=== PATIENT | female | born 1990 | race African-American/Black ===

== ENCOUNTER 2017-07-08 16:33 | Emergency (ER) | payer MEDICAID ==
[~2017-07-08] VITALS: Ht 160 cm; Wt 65.3 kg
[2017-07-08] MEDS ORDERED: Haloperidol 5mg/ml Inj IM ONE (17:15)
[2017-07-08 17:52] LABS: APPEARANCE,URINE CLEAR; BILIRUBIN, URINE NEGATIVE (NEGATIVE); GLUCOSE, URINE (UA) NEGATIVE (NEGATIVE); KETONES,URINE 1+ (NEGATIVE); LEUKOCYTE ESTERASE ,URINE 1+ (NEGATIVE); NITRITE,URINE NEGATIVE (NEGATIVE); PH,URINE 6 (4.5-8.0); PROTEIN,URINE NEGATIVE (NEGATIVE); UROBILINOGEN,URINE NORMAL MG/DL (0.0-1.0)
[2017-07-08 17:56] LABS: COLOR,URINE YELLOW
[2017-07-08 17:57] LABS: EOSINOPHILS % (AUTO) 0.2 % (0.0-3.0); HEMATOCRIT 48.5 % (37.0-47.0); HEMOGLOBIN 14.3 G/DL (12.0-16.0); LYMPHOCYTES % (AUTO) 14.3 % (20.0-45.0); MEAN CORPUSCULAR VOLUME 97 FL (80-99); MONOCYTES % (AUTO) 7.2 % (1.0-10.0); NEUTROPHILS % (AUTO) 77.4 % (45.0-75.0); PLATELET COUNT 228 K/UL (150-450); RED BLOOD COUNT 5.01 M/UL (4.20-5.40); RED CELL DISTRIBUTION WIDTH 12.4 % (11.6-14.8); WHITE BLOOD COUNT 10.7 K/UL (4.8-10.8)
[2017-07-08] MEDS ORDERED: ZOFRAN4 MG ORAL (18:18)
[2017-07-08 18:24] LABS: ANION GAP 11 mmol/L (5-15); BLOOD UREA NITROGEN 17 mg/dL (7-18); CALCIUM 8.7 MG/DL (8.5-10.1); CARBON DIOXIDE 25 MMOL/L (21-32); CHLORIDE 104 MMOL/L (98-107); CREATININE 0.9 MG/DL (0.55-1.30); POTASSIUM 4.1 MMOL/L (3.5-5.1); SODIUM 140 MMOL/L (136-145)
[2017-07-08 18:28] LABS: ALANINE AMINOTRANSFERASE 18 U/L (12-78); ALBUMIN 4.4 G/DL (3.4-5.0); ALBUMIN/GLOBULIN RATIO 1.1 (1.0-2.7); ALKALINE PHOSPHATASE 56 U/L (46-116); ASPARTATE AMINO TRANSFERASE 19 U/L (15-37); BILIRUBIN,TOTAL 0.4 MG/DL (0.2-1.0)
[2017-07-08 18:40] VITALS: BP 188/171
[2017-07-08 19:23] VITALS: BP 129/87
--- NOTE | 2017-08-03 13:58 | Emergency Room Report ---
History of Present Illness General Chief Complaint: Abdominal Pain Source: Patient Present Illness HPI Patient is a 27-year-old female who presented after increased abdominal pain.The patient stated that she had a history of similar type symptoms when she was having her menses. Patient was noted to have prior history of dysmenorrhea. The patient was noted to have otherwise unremarkable past medical history. She denies being . She denied prior history of stomach ulcers or alcohol use . Allergies: Coded Allergies: No Known Allergies (Unverified , 07/08/17) Patient History Last Menstrual Period: Current Reviewed Nursing Documentation: PMH: Agreed, PSxH: Agreed Nursing Documentation-PM Past Medical History: No History, Except For Hx Asthma: Yes Review of Systems All Other Systems: negative except mentioned in HPI Physical Exam Vital Signs Date Time Temp Pulse Resp B/P (MAP) Pulse Ox O2 Delivery O2 Flow Rate FiO2 07/08/17 16:40 99.1 73 21 188/171 98 Room Air General Appearance: well appearing, no apparent distress, alert, GCS 15, non- toxic Head: normocephalic, atraumatic ENT: hearing grossly normal, normal voice Neck: full range of motion, supple Respiratory: no respiratory distress, speaking full sentences Cardiovascular #1: normal inspection Gastrointestinal: normal inspection Musculoskeletal: no calf tenderness Neurologic: normal gait Psychiatric: mood/affect normal Skin: no rash Medical Decision Making Diagnostic Impression: Primary Impression: Nonspecific abdominal pain ER Course Patient presented for abdominal Pain. Differential diagnoses included ischemic bowel, appendicitis, perforated viscus, abdominal aortic aneurysm, inferior myocardial infarction, viral gastroenteritis. Because of complexity of patient' s case laboratory testing and imaging studies were ordered. Laboratory testing was notable for normal white blood count adequate hemoglobin. The patient was noted to have improvement after nausea medications. She is advised followup with her WALL TAPER HELPER for further examination and recheck . The patient is advised to follow up in 1-2 days. Patient is advised to return if any worsening condition or if any changes in status that are concerning. This report is dictated with [employer] platform inspector software which may occasionally lead to discrepancies related to use of this software. Labs Test 07/08/17 17:11 07/08/17 17:43 07/08/17 17:56 Urine Color Yellow Urine Appearance Clear Urine pH 6 (4.5-8.0) Urine Specific [place] 1.015 (1.005-1.035) Urine Protein Negative (NEGATIVE) Urine Glucose (UA) Negative (NEGATIVE) Urine Ketones 1+ (NEGATIVE) Urine Occult Blood 4+ (NEGATIVE) Urine Nitrite Negative (NEGATIVE) Urine Bilirubin Negative (NEGATIVE) Urine Urobilinogen Normal MG/DL (0.0-1.0) Urine Leukocyte Esterase 1+ (NEGATIVE) Urine RBC 15-20 /HPF (0 - 2) Urine WBC 2-4 /HPF (0 - 2) Urine Squamous Epithelial Cells Occasional /LPF Urine Bacteria Occasional /HPF (NONE) Urine HCG, Qualitative Negative Sodium Level 140 MMOL/L (136-145) Potassium Level 4.1 MMOL/L (3.5-5.1) Chloride Level 104 MMOL/L (98-107) Carbon Dioxide Level 25 MMOL/L (21-32) Anion Gap 11 mmol/L (5-15) Blood Urea Nitrogen 17 mg/dL (7-18) Creatinine 0.9 MG/DL (0.55-1.30) Estimat Glomerular Filtration Rate > 60 mL/min (>60) Glucose Level 94 MG/DL (74-106) Calcium Level 8.7 MG/DL (8.5-10.1) Total Bilirubin 0.4 MG/DL (0.2-1.0) Aspartate Amino Transf (AST/SGOT) 19 U/L (15-37) Alanine Aminotransferase (ALT/SGPT) 18 U/L (12-78) Alkaline Phosphatase 56 U/L (46-116) Troponin I 0.000 ng/mL (0.000-0.056) Total Protein 8.3 G/DL (6.4-8.2) Albumin 4.4 G/DL (3.4-5.0) Globulin 3.9 g/dL Albumin/Globulin Ratio 1.1 (1.0-2.7) Lipase 114 U/L (73-393) White Blood Count 10.7 K/UL (4.8-10.8) Red Blood Count 5.01 M/UL (4.20-5.40) Hemoglobin 14.3 G/DL (12.0-16.0) Hematocrit 48.5 % (37.0-47.0) Mean Corpuscular Volume 97 FL (80-99) Mean Corpuscular Hemoglobin 28.6 PG (27.0-31.0) Mean Corpuscular Hemoglobin Concent 29.5 G/DL (32.0-36.0) Red Cell Distribution Width 12.4 % (11.6-14.8) Platelet Count 228 K/UL (150-450) Mean Platelet Volume 7.4 FL (6.5-10.1) Neutrophils (%) (Auto) 77.4 % (45.0-75.0) Lymphocytes (%) (Auto) 14.3 % (20.0-45.0) Monocytes (%) (Auto) 7.2 % (1.0-10.0) Eosinophils (%) (Auto) 0.2 % (0.0-3.0) Basophils (%) (Auto) 1.0 % (0.0-2.0) Last Vital Signs Date Time Temp Pulse Resp B/P (MAP) Pulse Ox O2 Delivery O2 Flow Rate FiO2 07/08/17 19:23 99.1 68 20 129/87 98 Room Air Status: improved Disposition: HOME, SELF-CARE Condition: Stable Scripts Ondansetron (Zofran) 4 Mg Tablet 4 MG ORAL Q6H Y for Nausea & Vomiting, #30 TAB 0 Refills Prov: Abraham Mancilla 07/08/17 Patient Instructions: Abdominal Pain, Adult Abraham Mancilla Aug 03, 2017 13:58
== END 2017-07-08 19:27 | disposition home or self-care (01) ==
LOC: EMR 17:45
DX: R11.10 Vomiting, unspecified (principal); R10.9 Unspecified abdominal pain; R06.02 Shortness of breath
CPT/HCPCS: 36415; 80053; 81003; 81025; 83690; 84484; 85025; 96360; 96372; 99284; J1630; 96361

== ENCOUNTER 2018-01-09 12:24 | Emergency (ER) | payer MEDICAID ==
[~2018-01-09] VITALS: Ht 162.6 cm; Wt 65.8 kg
[~2018-01-09 12:24] MED LIST: ZOFRAN4 MG ORAL
[2018-01-09 12:35] VITALS: BP 122/75
[2018-01-09] MEDS ORDERED: NKM (12:40)
[2018-01-09] MEDS ORDERED: Ketorolac 60mg Inj IM ONE (13:00)
--- NOTE | 2018-01-09 13:43 | Emergency Room Report ---
History of Present Illness General Chief Complaint: Upper Extremity Injury Source: Patient Present Illness HPI 27-year-old female presents emergency department complaining of 7 out of 10 in severity localized pain, swelling and difficulty bending the left third finger times one month status post injury where she describes jamming her finger. Patient also reports 7 out of 10 in severity uterine cramping/menstrual cramps. Patient reports that she has intermittent painful periods and sometimes requires medications. She reports 1 episode of vomiting this am. pt. reports hx of painful periods in the past sometimes associated with vomiting. Patient denies . Denies hematuria, dysuria, urinary frequency. Patient states she is not sexually active. Patient denies history of STDs. Patient denies vaginal discharge or swollen tender lymph nodes. Denies numbness tingling or loss of sensation or gross motor movements of the extremities, incontinence of bowel or bladder. Denies CP, Palpitations, LOC, AMS, dizziness, Changes in Vision, weakness or a sudden severe headache. Allergies: Coded Allergies: No Known Allergies (Unverified , 07/08/17) Patient History Past Medical History: see triage record Past Surgical History: none Pertinent Family History: none Last Menstrual Period: 01/09/18 Now: No Immunizations: UTD Reviewed Nursing Documentation: PMH: Agreed; PSxH: Agreed Nursing Documentation-PMH Hx Asthma: Yes Review of Systems All Other Systems: negative except mentioned in HPI Physical Exam Vital Signs Date Time Temp Pulse Resp B/P (MAP) Pulse Ox O2 Delivery O2 Flow Rate FiO2 01/09/18 12:34 98.5 61 16 122/75 98 Room Air 98.4 Sp02 EP Interpretation: reviewed, normal General Appearance: alert, GCS 15, non-toxic, mild distress Head: normocephalic, atraumatic ENT: hearing grossly normal, normal voice Neck: full range of motion Respiratory: lungs clear, normal breath sounds, speaking full sentences Cardiovascular #1: regular rate, rhythm, normal capillary refill Gastrointestinal: normal bowel sounds, non tender, soft Rectal: deferred Genitourinary: normal inspection, no CVA tenderness, adnexa normal Musculoskeletal: back normal, gait/station normal, normal range of motion, swelling - left 3rd PIP Joint, tender - TTP to the left 3rd PIP joint, swelling noted. Neurologic: alert, oriented x3, responsive, motor strength/tone normal, sensory intact, speech normal, grossly normal Psychiatric: judgement/insight normal Skin: normal color, no rash, warm/dry, well hydrated Medical Decision Making PA Attestation Dr. shelton is my supervising Physician whom patient management has been discussed with. Diagnostic Impression: Primary Impression: Sprain of finger of left hand Qualified Codes: S63.633A - Sprain of interphalangeal joint of left middle finger, initial encounter Additional Impressions: Dysmenorrhea Trichomonal cystitis ER Course 27-year-old female presents emergency department complaining of 7 out of 10 in severity localized pain, swelling and difficulty bending the left third finger times one month status post injury where she describes jamming her finger. Patient also reports 7 out of 10 in severity uterine cramping/menstrual cramps. Patient reports that she has intermittent painful periods and sometimes requires medications. She reports 1 episode of vomiting this am. pt. reports hx of painful periods in the past sometimes associated with vomiting. Patient denies . Denies hematuria, dysuria, urinary frequency. Patient states she is not sexually active. Patient denies history of STDs. Patient denies vaginal discharge or swollen tender lymph nodes. Denies numbness tingling or loss of sensation or gross motor movements of the extremities, incontinence of bowel or bladder. Denies CP, Palpitations, LOC, AMS, dizziness, Changes in Vision, weakness or a sudden severe headache. . Patient attest that she is not sexually active she states that she is 100% lesbian Ddx considered but are not limited to Fracture, dislocation, contusion, Sprain/ Strain/Spasm, menstrual cramps, , UTI, ectopic, PID just to name a few. Vital signs: are WNL, pt. is afebrile H&PE are most consistent with musculoskeletal injury will perform imaging to r/ o fractures/dislocations. ORDERS: -UA: few trichomonads -Urine Hcg: Negative - X-ray Left hand 3 views - negative for fx, Dislocation, or significant soft tissue injury, per preliminary read in ED, and signed by FRANKIE Adams , my supervising physician has reviewed, and agrees with my interpretation. ED INTERVENTIONS: - Toradol IM -Pt. declines finger splint. d/w pt. results of lab work, and that partner needs to be treated as well. HEAD SWAMPER or PCP follow up unless worsening or new symptoms in which case pt. will return promptly to the ED. DISCHARGE: At this time pt. is stable for d/c to home. Will provide printed patient care instructions, and any necessary prescriptions. Care plan and follow up instructions have been discussed with the patient prior to discharge. Labs Test 01/09/18 13:49 Urine Color Pale yellow Urine Appearance Clear Urine pH 7 (4.5-8.0) Urine Specific [place] 1.010 (1.005-1.035) Urine Protein Negative (NEGATIVE) Urine Glucose (UA) Negative (NEGATIVE) Urine Ketones Negative (NEGATIVE) Urine Occult Blood 5+ (NEGATIVE) Urine Nitrite Negative (NEGATIVE) Urine Bilirubin Negative (NEGATIVE) Urine Urobilinogen Normal MG/DL (0.0-1.0) Urine Leukocyte Esterase Negative (NEGATIVE) Urine RBC 15-20 /HPF (0 - 2) Urine WBC 5-10 /HPF (0 - 2) Urine Squamous Epithelial Cells Few /LPF (NONE/OCC) Urine Bacteria Occasional /HPF (NONE) Urine Trichomonas Few /HPF (NONE) Urine HCG, Qualitative Negative (NEGATIVE) Other X-Ray Diagnostic Results Other X-Ray Diagnostic Results : X-Ray ordered: Xray Left Fingers # of Views/Limited Vs Complete: 3 View Indication: Pain EP Interpretation: Yes PA Xray: Interpretation reviewed, by supervising MD, and agrees with findings. Interpretation: no dislocation, no soft tissue swelling, no fractures Impression: No acute disease Electronically Signed by: Jennifer Adams PA-C Last Vital Signs Date Time Temp Pulse Resp B/P (MAP) Pulse Ox O2 Delivery O2 Flow Rate FiO2 01/09/18 12:34 98.5 61 16 122/75 98 Room Air 98.4 Disposition: HOME, SELF-CARE Condition: Stable Scripts Ondansetron Odt* (ZOFRAN ODT*) 4 Mg Tab.rapdis 4 MG BC EVERY 6 HOURS PRN for Nausea & Vomiting, #10 TAB 0 Refills Prov: Jennifer Adams 01/09/18 Ibuprofen* (MOTRIN*) 600 Mg Tablet 600 MG ORAL THREE TIMES A DAY, #20 TAB 0 Refills Prov: Jennifer Adams 01/09/18 Norethindrone-E.estradiol-Iron ([place] Fe 1.5-30 Tablet) 1 Each Tablet 1 EACH PO DAILY for 30 Days, #1 PACK 3 Refills Prov: Jennifer Adams 01/09/18 Metronidazole* (FLAGYL*) 500 Mg Tablet 500 MG ORAL BID for 5 Days, #10 TAB 1 Refill Prov: Jennifer Adams 01/09/18 Patient Instructions: Dysmenorrhea, [id number], Finger Sprain, [id number] Additional Instructions: Take medications as directed. Follow up with a Primary Care Provider in 3-5 days, even if your symptoms have resolved. --Please review list of primary care clinics, if you do not already have a primary care provider Return sooner to ED if new symptoms occur, or current symptoms become worse. Do not drink alcohol, drive, or operate heavy machinery while taking [ ] as this may cause drowsiness. - Please note that this Emergency Department Report was dictated using [employer] technology software, occasionally this can lead to erroneous entry secondary to interpretation by the dictation equipment. Jennifer Adams Jan 09, 2018 13:43
--- NOTE | 2018-01-09 13:48 | Diagnostic Imaging Report ---
Indication: Finger injury and pain Comparison: None Findings: 4 views of the left fourth digit show no acute fracture or malalignment or radiopaque foreign body. IMPRESSION: Negative exam
[2018-01-09 13:54] LABS: APPEARANCE,URINE CLEAR; BILIRUBIN, URINE NEGATIVE (NEGATIVE); COLOR,URINE PALE YELLOW; GLUCOSE, URINE (UA) NEGATIVE (NEGATIVE); KETONES,URINE NEGATIVE (NEGATIVE); LEUKOCYTE ESTERASE ,URINE NEGATIVE (NEGATIVE); NITRITE,URINE NEGATIVE (NEGATIVE); PH,URINE 7 (4.5-8.0); PROTEIN,URINE NEGATIVE (NEGATIVE); UROBILINOGEN,URINE NORMAL MG/DL (0.0-1.0)
[2018-01-09] MEDS ORDERED: BLISOVI FE 1.51 EACH PO (14:30)
[2018-01-09] MEDS ORDERED: IBUPROFEN600 MG ORAL (14:30)
[2018-01-09] MEDS ORDERED: ONDANSETRON ODT4 MG BC (14:30)
[2018-01-09] MEDS ORDERED: METRONIDAZOLE500 MG ORAL (14:30)
[2018-01-09 14:55] VITALS: BP 122/75
== END 2018-01-09 14:55 | disposition home or self-care (01) ==
LOC: EMR 13:13
DX: S63.613A Unspecified sprain of left middle finger, initial encounter (principal); W23.0XXA Caught, crushed, jammed, or pinched between moving objects, initial encounter; Y92.9 Unspecified place or not applicable; A59.03 Trichomonal cystitis and urethritis; N94.6 Dysmenorrhea, unspecified; J45.909 Unspecified asthma, uncomplicated
CPT/HCPCS: 81003; 81025; 96372; 99284

== ENCOUNTER 2018-02-08 08:10 | Emergency (ER) | payer BC, MEDICAID ==
[~2018-02-08] VITALS: Ht 162.6 cm; Wt 68.0 kg
[~2018-02-08 08:10] MED LIST changes: +BLISOVI FE 1.51 EACH PO; +IBUPROFEN600 MG ORAL; +METRONIDAZOLE500 MG ORAL; +NKM; +ONDANSETRON ODT4 MG BC
[2018-02-08 08:21] VITALS: BP 136/64
[2018-02-08 08:42] LABS: APPEARANCE,URINE CLEAR; BILIRUBIN, URINE NEGATIVE (NEGATIVE); COLOR,URINE PALE YELLOW; GLUCOSE, URINE (UA) NEGATIVE (NEGATIVE); KETONES,URINE NEGATIVE (NEGATIVE); LEUKOCYTE ESTERASE ,URINE 1+ (NEGATIVE); NITRITE,URINE NEGATIVE (NEGATIVE); PH,URINE 7 (4.5-8.0); PROTEIN,URINE 1+ (NEGATIVE); UROBILINOGEN,URINE 4 MG/DL (0.0-1.0)
[2018-02-08] MEDS ORDERED: Ketorolac 30mg Inj IM ONE (08:45)
[2018-02-08] MEDS ORDERED: PERCOCET 5-3251 EACH ORAL (09:24)
[2018-02-08 09:27] VITALS: BP 136/64
--- NOTE | 2018-02-08 09:33 | Emergency Room Report ---
History of Present Illness General Chief Complaint: Abdominal Pain Source: Patient Present Illness HPI 27-year-old female presents ED complaining of cramping abdominal pain since this morning. Cramping, 8 out of 10, nonradiating. States her period started today. Started earlier than usual. States she is not . States she has similar episodes of pain during her periods that time. Was seen here last month for similar pain and was given a shot. Denies heavier vaginal bleeding. Denies any discharge. Denies nausea or vomiting. No other aggravating relieving factors. Denies any other associated symptoms Allergies: Coded Allergies: No Known Allergies (Unverified , 07/08/17) Patient History Past Medical History: asthma Past Surgical History: none Pertinent Family History: none Social History: Denies: smoking, alcohol use, drug use Last Menstrual Period: on period Now: No Immunizations: UTD Reviewed Nursing Documentation: PMH: Agreed; PSxH: Agreed Nursing Documentation-PMH Past Medical History: No Stated History Hx Asthma: Yes Review of Systems All Other Systems: negative except mentioned in HPI Physical Exam Vital Signs Date Time Temp Pulse Resp B/P (MAP) Pulse Ox O2 Delivery O2 Flow Rate FiO2 02/08/18 08:15 98.1 59 16 136/64 98 Room Air 98.1 Sp02 EP Interpretation: reviewed, normal General Appearance: no apparent distress, alert, GCS 15, non-toxic Head: normocephalic, atraumatic Eyes: bilateral eye normal inspection, bilateral eye PERRL ENT: hearing grossly normal, normal pharynx, no angioedema, normal voice Neck: full range of motion, supple/symm/no masses Respiratory: chest non-tender, lungs clear, normal breath sounds, speaking full sentences Cardiovascular #1: regular rate, rhythm, no edema Cardiovascular #2: 2+ carotid (R), 2+ carotid (L), 2+ radial (R), 2+ radial (L) , 2+ dorsalis pedis (R), 2+ dorsalis pedis (L) Gastrointestinal: normal bowel sounds, soft, non-distended, no guarding, no rebound, tenderness - suprapubic Rectal: deferred Genitourinary: normal inspection, no CVA tenderness Musculoskeletal: back normal, gait/station normal, normal range of motion, non- tender Neurologic: alert, oriented x3, responsive, motor strength/tone normal, sensory intact, speech normal Psychiatric: judgement/insight normal, memory normal, mood/affect normal, no suicidal/homicidal ideation Reflexes: 3+ bicep (R), 3+ bicep (L), 3+ tricep (R), 3+ tricep (L), 3+ knee (R) , 3+ knee (L) Skin: normal color, no rash, warm/dry, well hydrated Lymphatic: no adenopathy Medical Decision Making Diagnostic Impression: Primary Impression: Menstrual cramps ER Course Hospital Course 27-year-old female presents to ED complaining of cramping pain. Differential diagnoses include: UTI, cystitis, dysmenorrhea, ectopic Clinical course Patient placed on stretcher. After initial history and physical I ordered UA, urine , toradol. UA noted to be unremarkable. BHCG negative On reassessment pain is improved. Consistent with dysmenorrhea. Patient states she has PMD that she will follow-up with. We will prescribe her with short course of pain meds. No evidence of narcotic prescription refills on CURES Diagnosis - menstrual cramps Stable and discharged home with prescriptions for Rx [place]. Instructed to followup with PMD. Return to ED if symptoms recur or worsen Labs Test 02/08/18 08:30 Urine Color Pale yellow Urine Appearance Clear Urine pH 7 (4.5-8.0) Urine Specific [place] 1.010 (1.005-1.035) Urine Protein 1+ (NEGATIVE) Urine Glucose (UA) Negative (NEGATIVE) Urine Ketones Negative (NEGATIVE) Urine Occult Blood 4+ (NEGATIVE) Urine Nitrite Negative (NEGATIVE) Urine Bilirubin Negative (NEGATIVE) Urine Urobilinogen 4 MG/DL (0.0-1.0) Urine Leukocyte Esterase 1+ (NEGATIVE) Urine RBC 20-30 /HPF (0 - 2) Urine WBC 2-4 /HPF (0 - 2) Urine Squamous Epithelial Cells Few /LPF (NONE/OCC) Urine Bacteria Occasional /HPF (NONE) Urine HCG, Qualitative Negative (NEGATIVE) Last Vital Signs Date Time Temp Pulse Resp B/P (MAP) Pulse Ox O2 Delivery O2 Flow Rate FiO2 02/08/18 09:27 98.1 59 16 136/64 98 Room Air 98.1 Status: improved Disposition: HOME, SELF-CARE Condition: Stable Scripts Oxycodone/Acetaminophen 5-325* (PERCOCET 5-325 MG TABLET*) 1 Each Tablet 1 TAB ORAL Q4H PRN for For Pain, #10 TAB 0 Refills Prov: Myron Flores MD 02/08/18 Patient Instructions: Dysmenorrhea, [id number] Myron Flores MD Feb 08, 2018 09:33
== END 2018-02-08 09:29 | disposition home or self-care (01) ==
LOC: EMR 08:37
DX: N94.6 Dysmenorrhea, unspecified (principal); J45.909 Unspecified asthma, uncomplicated
CPT/HCPCS: 81003; 81025; 96372; 99283; J1885